=== PATIENT | male | born 1970 | race Caucasian/White ===

== ENCOUNTER 2020-08-28 06:00 | Day surgery (SDC) | payer OTHER ==
[~2020-08-28] VITALS: Ht 180.3 cm; Wt 106.8 kg
[~2020-08-28 06:00] MED LIST: ACID CONTROLLER20 MG PO; FINASTERIDE1 MG PO; LISINOPRIL40 MG PO
--- NOTE | 2020-08-28 06:21 | NUR ---
PT WAS SWABBED FOR COVID 19 FULL PPE DONNED SAMPLE SENT TO LAB
--- NOTE | 2020-08-28 09:47 | NUR ---
08/28/20 0947 Vivian Zhou 0909 PATIENT ARRIVES TO PACU AWAKE. RESP EVEN AND UNLABORED, ROOM AIR SATS >95%. REPOSITIONS SELF TO POSITION OF COMFORT, PASSING GAS.
--- NOTE | 2020-08-31 15:35 | OR ---
[facility] [address] [place], [place] [address] Signed DATE OF OPERATION: SURGEON: Ramón Nunez MD PREOPERATIVE DIAGNOSIS: Positive fecal occult blood test. POSTOPERATIVE DIAGNOSIS: Normal colon. PROCEDURE: Total colonoscopy to cecum. ANESTHESIA: Intravenous sedation, fentanyl 100 mcg and Versed 9 mg. INDICATION: This 50-year-old white man is a prisoner at [facility] and a patient of ESSIE Niño. He was found to have positive fecal occult blood test. He has no known family history of colon cancer though family members have had polyps. He has had no blood per rectum or hematemesis and has no abdominal pain. He is admitted to undergo colonoscopy based on his fecal occult blood test. He understands the risks of bleeding, infection, perforation, and so on. FINDINGS: The prep was adequate. Complete colonoscopy was undertaken. The ileocecal valve was visualized. The mucosa behind the ileocecal valve was elevated and found to be normal, but true intubation of the cecum itself could not be certain. The remaining colon was entirely normal without signs of polyps, diverticular formation, colitis, or cancer. DESCRIPTION OF PROCEDURE: The patient was brought to the surgical endoscopy suite and placed in lateral decubitus position, given intravenous sedation to the point of slurred speech and nystagmus with full cardiopulmonary monitoring. Digital rectal examination was normal. An Olympus video colonoscope was passed in the rectum and manipulated throughout the colon ultimately intubating the right colon and passage to the area of the cecum. The ileocecal valve was well identified various maneuvers via cecum itself could not be fully intubated. One could see most of it, but not actually passed the scope to the cecum itself. On that basis, a biopsy forcep was used to elevate the mucosa behind the ileocecal valve and visualized as normal. The scope was withdrawn from that point Electronically Signed By: RAMÓN NUNEZ MD 08/31/20 1535 PATIENT NAME: COLLETTE PIÑA OPERATIVE REPORT DATE OF : 66 REPORT #: [id number] PHYSICIAN: RAMÓN NUNEZ MD PCP: NO PRIMARY CARE PHYSICIAN REPORT IS CONFIDENTIAL AND NOT TO BE RELEASED WITHOUT AUTHORIZATION [facility] [address] [place], [place] [address] Signed and examination throughout showed no sign of polyps, diverticular formation, colitis, or cancer. Retroflex view was normal. Scope was removed. The patient was taken to the recovery room in good condition. CONCLUDING DIAGNOSIS: Normal-appearing colon. No lesion to account for fecal occult blood test findings. PLAN: Recommend repeat fecal occult blood test. If positive, consideration would be made for upper endoscopy. He will return to the ongoing care of ESSIE Nuñez at [facility]. MD ALOK Fraser/JANNETHL /[id number] cc: ESISE Nuñez Copies: ~ Electronically Signed By: RAMÓN NUNEZ MD 08/31/20 1535 PATIENT NAME: COLLETTE PIÑA OPERATIVE REPORT DATE OF : 66 REPORT #: [id number] PHYSICIAN: RAMÓN NUNEZ MD PCP: NO PRIMARY CARE PHYSICIAN REPORT IS CONFIDENTIAL AND NOT TO BE RELEASED WITHOUT AUTHORIZATION
== END 2020-08-28 10:10 | disposition home or self-care (01) ==
LOC: DS 06:00 → OPS 06:00 → DS 06:45 → OPS 06:45 → DS 07:30 → OPS 10:10
PROVIDERS: ATTEND Surgery
PROC: 0DJD8ZZ Inspection of Lower Intestinal Tract, Via Natural or Artificial Opening Endoscopic (ICD-10-PCS; principal; 2020-08-28 06:45)
DX: R19.5 Other fecal abnormalities (principal); I10 Essential (primary) hypertension; Z79.899 Other long term (current) drug therapy; Z83.71 Family history of colonic polyps; Z01.812 Encounter for preprocedural laboratory examination; Z20.828 Contact with and (suspected) exposure to other viral communicable diseases
CPT/HCPCS: 99153; C9803; G0500; J2250; J3010; J7121; U0003